=== PATIENT | female | born 1970 | race Native Hawaiian/Other Pacific Islander ===

== ENCOUNTER 2020-12-29 09:06 | Outpatient (CLI) | payer OTHER | END 2020-12-29 23:59 | disposition home or self-care (01) | LOC: US 09:06 | PROVIDERS: ATTEND Nurse Practitioner | DX: N63.21 Unspecified lump in the left breast, upper outer quadrant (principal) | CPT/HCPCS: G0279 ==

== ENCOUNTER 2021-11-15 18:16 | Outpatient (CLI) | payer OTHER | END 2021-11-15 19:08 | disposition home or self-care (01) | LOC: RAD 18:16 | PROVIDERS: ATTEND Nurse Practitioner | DX: R06.02 Shortness of breath (principal); R10.84 Generalized abdominal pain ==

== ENCOUNTER 2022-01-17 00:23 | Emergency (ER) | payer OTHER ==
[~2022-01-17] VITALS: Ht 160 cm; Wt 65.8 kg
[2022-01-17 01:38] LABS: PLATELET COUNT 280 K/uL (152-353)
[2022-01-17 01:46] LABS: POTASSIUM 3.5 mmol/L (3.6-5.2)
[2022-01-17 02:49] VITALS: BP 161/78; TEMP 98
== END 2022-01-17 02:49 | disposition home or self-care (01) ==
LOC: ED 00:23
PROVIDERS: Emergency Medicine Emergency Medical Services
DX: I95.1 Orthostatic hypotension (principal)
CPT/HCPCS: 36415; 80048; 81002; 83735; 84484; 85027; 93005; 96360; 96365; 99284

== ENCOUNTER 2022-01-24 07:42 | Emergency (ER) | payer OTHER ==
[~2022-01-24] VITALS: Ht 160 cm; Wt 68.0 kg
[2022-01-24 07:44] VITALS: TEMP 99.5
[2022-01-24 08:38] LABS: PLATELET COUNT 265 K/uL (152-353)
[2022-01-24 09:00] LABS: PARTIAL THROMBOPLASTIN TIME 24.1 SECONDS (24.5-33.6)
[2022-01-24 09:22] VITALS: BP 156/85
== END 2022-01-24 09:37 | disposition home or self-care (01) ==
LOC: ED 07:42
PROVIDERS: Emergency Medicine
DX: R55 Syncope and collapse (principal); Z98.890 Other specified postprocedural states
CPT/HCPCS: 80053; 83880; 84484; 85027; 85610; 85730; 93005; 99284

== ENCOUNTER 2022-08-27 13:10 | Outpatient (CLI) | payer OTHER | END 2022-08-27 22:03 | disposition home or self-care (01) | LOC: US 13:10 | PROVIDERS: ATTEND Nurse Practitioner | DX: R13.19 Other dysphagia (principal) ==